=== PATIENT | male | born 1995 | race Caucasian/White ===

== ENCOUNTER 2018-08-03 23:58 | Emergency (ER) | payer MEDICAID, OTHER ==
[~2018-08-03] VITALS: Ht 188 cm; Wt 81.8 kg
[2018-08-04 00:22] VITALS: BP 135/82
[2018-08-04] MEDS ORDERED: diphenhydrAMINE 25 MG/10 ML UD oral solution PO ONE (00:55)
[2018-08-04] MEDS ORDERED: albuterol 2.5 MG/3 ML nebule NEB ONE (01:40)
[2018-08-04] MEDS ORDERED: ALBU6.7H INH (01:43)
[2018-08-04] MEDS ORDERED: [UNRECOGNIZED DRUG - CODE] PO (01:43)
== END 2018-08-04 02:02 | disposition home or self-care (01) ==
LOC: ER 23:59
DX: J10.1 Influenza due to other identified influenza virus with other respiratory manifestations (principal); F17.200 Nicotine dependence, unspecified, uncomplicated; Z79.899 Other long term (current) drug therapy
CPT/HCPCS: 87502; 87503; 94640; 94760; 99283; Q0163

== ENCOUNTER 2019-11-04 19:12 | Emergency (ER) | payer MEDICAID ==
[~2019-11-04] VITALS: Ht 190.5 cm; Wt 81.8 kg
[~2019-11-04 19:12] MED LIST: ALBU6.7H9 INH; [UNRECOGNIZED DRUG - CODE] PO
[2019-11-04 19:13] VITALS: BP 142/87
[2019-11-04] MEDS ORDERED: HYDROcodone/acetaminophen 5mg/325mg tablet PO ONE (19:50)
[2019-11-04] MEDS ORDERED: IBUP-1985 PO (20:04)
== END 2019-11-04 20:10 | disposition home or self-care (01) ==
LOC: ER 19:12
DX: S90.31XA Contusion of right foot, initial encounter (principal); M25.571 Pain in right ankle and joints of right foot; Z79.899 Other long term (current) drug therapy; V29.3XXA Motorcycle rider (driver) (passenger) injured in unspecified nontraffic accident, initial encounter; Y93.89 Activity, other specified; Y92.89 Other specified places as the place of occurrence of the external cause; Y99.8 Other external cause status
CPT/HCPCS: 29515; 73630; 99283

== ENCOUNTER 2020-09-05 16:47 | Emergency (ER) | payer MEDICAID ==
[~2020-09-05] VITALS: Ht 190.5 cm; Wt 81.8 kg
[~2020-09-05 16:47] MED LIST changes: +IBUP-1985 PO
[2020-09-05 16:54] VITALS: BP 127/81
[2020-09-05] MEDS ORDERED: ketorolac trometh inj. 60 MG/2 ML VIAL IM ONE (17:25)
[2020-09-05] MEDS ORDERED: HYDROcodone/acetaminophen 5mg/325mg tablet PO ONE (17:25)
[2020-09-05] MEDS ORDERED: HYDR-3965 PO (18:51)
[2020-09-05] MEDS ORDERED: NAPR-56 PO (18:51)
== END 2020-09-05 18:51 | disposition home or self-care (01) ==
LOC: ER 16:47
DX: S20.212A Contusion of left front wall of thorax, initial encounter (principal); R07.89 Other chest pain; R06.02 Shortness of breath; F17.210 Nicotine dependence, cigarettes, uncomplicated; V86.99XA Unspecified occupant of other special all-terrain or other off-road motor vehicle injured in nontraffic accident, initial encounter; Y93.89 Activity, other specified; Y92.89 Other specified places as the place of occurrence of the external cause; Y99.8 Other external cause status
CPT/HCPCS: 71101; 96372; 99283; J1885